=== PATIENT | male | born 1980 | race African-American/Black ===

== ENCOUNTER 2021-08-23 17:33 | Emergency (ER) | payer SELFPAY ==
[~2021-08-23] VITALS: Ht 177.8 cm; Wt 81.6 kg
[2021-08-23] MEDS ORDERED: DOXYCYCLINE HY100 MG PO (17:50)
[2021-08-23] MEDS ORDERED: CEFTRIAXONE 500 MG VIAL IM ONE (18:00)
[2021-08-23] MEDS ORDERED: METRONIDAZOLE 500 MG TAB PO ONE (18:00)
[2021-08-23] MEDS ORDERED: LIDOCAINE 1% 5ML-MPF INJ ONE (18:00)
[2021-08-23] MEDS ORDERED: CEFTRIAXONE 500 MG VIAL ONE (18:14)
[2021-08-23] MEDS ORDERED: METRONIDAZOLE 500 MG TAB ONE (18:14)
== END 2021-08-23 18:38 | disposition home or self-care (01) ==
LOC: ER 17:44
DX: R36.9 Urethral discharge, unspecified (principal); N34.2 Other urethritis; F17.210 Nicotine dependence, cigarettes, uncomplicated
CPT/HCPCS: 99283; J0696

== ENCOUNTER 2022-05-03 11:54 | Emergency (ER) | payer SELFPAY ==
[~2022-05-03] VITALS: Ht 175.3 cm; Wt 80.7 kg
[~2022-05-03 11:54] MED LIST: DOXYCYCLINE HY100 MG PO
== END 2022-05-03 13:35 | disposition home or self-care (01) ==
LOC: FSED 12:24
DX: R50.9 Fever, unspecified (principal); R19.7 Diarrhea, unspecified; R10.30 Lower abdominal pain, unspecified; I10 Essential (primary) hypertension; F17.210 Nicotine dependence, cigarettes, uncomplicated
CPT/HCPCS: 99282